=== PATIENT | male | born 1970 | race Caucasian/White ===

== ENCOUNTER → 2018-03-13 | Outpatient (CLI) | payer MEDICARE, MEDICAID | END | disposition home or self-care (01) | LOC: PCVCCLINIC 14:22 | PROVIDERS: ATTEND Internal Medicine Cardiovascular Disease | DX: I25.10 Atherosclerotic heart disease of native coronary artery without angina pectoris (principal); I10 Essential (primary) hypertension; E78.00 Pure hypercholesterolemia, unspecified; I42.9 Cardiomyopathy, unspecified; I21.4 Non-ST elevation (NSTEMI) myocardial infarction; F17.210 Nicotine dependence, cigarettes, uncomplicated; Z95.5 Presence of coronary angioplasty implant and graft; Z88.5 Allergy status to narcotic agent; Z79.82 Long term (current) use of aspirin; Z72.89 Other problems related to lifestyle | CPT/HCPCS: 36415; 80061; 93005; G0463 ==

== ENCOUNTER → 2018-07-17 | Outpatient (CLI) | payer MEDICAID, MEDICARE | END | disposition home or self-care (01) | LOC: PCVCCLINIC 15:00 | PROVIDERS: ATTEND Internal Medicine Cardiovascular Disease | DX: I25.10 Atherosclerotic heart disease of native coronary artery without angina pectoris (principal); E78.2 Mixed hyperlipidemia; I42.9 Cardiomyopathy, unspecified; I10 Essential (primary) hypertension; M19.90 Unspecified osteoarthritis, unspecified site; E78.5 Hyperlipidemia, unspecified; F17.210 Nicotine dependence, cigarettes, uncomplicated; Z95.5 Presence of coronary angioplasty implant and graft; Z88.5 Allergy status to narcotic agent; Z72.89 Other problems related to lifestyle; Z79.82 Long term (current) use of aspirin | CPT/HCPCS: 36415; 80061; 93005; G0463 ==

== ENCOUNTER → 2019-01-26 | Outpatient (CLI) | payer MEDICARE, MEDICAID ==
--- NOTE | 2019-01-26 16:52 | PCVCIMAG ---
APPROVED REPORT Study performed: 01/26/2019 15:32:09 Exam: Stress Echocardiogram Indication: CAD s/p MO, CAD s/p PCI, ischemic cardiomyopathy Patient Location: Echo lab Stress Nurse: Leslie Montemayor RN Status: routine Ht: 6 ft 1 in HR: 76 bpm BP: 168/108 mmHg Rhythm: NSR Procedure The patient underwent an Exercise Stress Test using the Roman Protocol. Blood pressure, heart rate, and EKG were monitored. An Echocardiogram was performed by alarm field technician in four stages in quad fashion. At peak stress, four selected images were obtained and placed side by side with resting images for comparison. Stress Test Details Stress Test: Exercise stress testing was performed using a Roman protocol. HR Resting HR: 76 bpmMax Heart Rate (APMHR): 170 bpm Max HR Achieved: 160 bpmTarget HR (85% APMHR): 144 bpm % of APMHR: 94 Recovery HR: 92 bpm HR response to stress: Normal HR response to stress BP Resting BP: 168/108 mmHg Max BP: 220/110 mmHg Recovery BP: 184/100 mmHg BP response to stress: Normal blood pressure response to stress. ECG Resting ECG: Sinus Rhythm, nonspecific ST-T abnormalities Stress ECG: Sinus Rhythm, nonspecific ST-T abnormalities ST Change: inferior ST changes consistent with anatomy and old inferior MO Arrhythmia: PVCs Recovery ECG: Sinus Rhythm, nonspecific ST-T abnormalities Recovery ST Change: inferior T wave changes consistent with anatomy and old inferior MO Recovery Arrhythmia: PVCs Clinical Reason for Termination: Maximal effort Stress Symptoms: Dyspnea Pre-Stress Echo The resting Echocardiogram showed normal left ventricular contractility with an estimated Ejection Fraction of about 40%. Basal-mid inferior and basal-mid septal akinesis consistent with old MO. Post-Stress Echo The stress Echocardiogram showed normal left ventricular contractility with an estimated Ejection Fraction of about 45-50%. Basal-mid inferior and basal-mid septal akinesis consistent with old MO and inferoapical hypokinesis. Clinical No clinical or ECG evidence for ischemia. Conclusion Clinical Response: Non-ischemic Exercise Capacity: Average Stress ECG Response: Equivocal- consistent with old MO and coronary anatomy Stress Echo Images: Non-ischemic The left ventricle is normal in size and wall thickness in both the rest and stress images.ef 45% Mild mitral regurgitation. Otherwise normal color doppler. No regurgitation or stenosis present on pulmonic,tricuspid and aortic valves. Other Information Study Quality: Adequate <Conclusion> The left ventricle is normal in size and wall thickness in both the rest and stress images.ef 45% Mild mitral regurgitation. Otherwise normal color doppler. No regurgitation or stenosis present on pulmonic,tricuspid and aortic valves.
== END | disposition home or self-care (01) ==
LOC: PCVCIMAG 15:23
PROVIDERS: ATTEND Internal Medicine Cardiovascular Disease
DX: I34.0 Nonrheumatic mitral (valve) insufficiency (principal); I25.10 Atherosclerotic heart disease of native coronary artery without angina pectoris; I25.5 Ischemic cardiomyopathy; F17.200 Nicotine dependence, unspecified, uncomplicated; Z88.5 Allergy status to narcotic agent; Z95.5 Presence of coronary angioplasty implant and graft
CPT/HCPCS: 93325; 93351